=== PATIENT | male | born 1970 | race American Indian/Alaskan Native ===

== ENCOUNTER 2020-04-03 13:45 | Emergency (ER) | payer OTHER ==
--- NOTE | 2020-04-03 14:20 | Event Note ---
ED Screening Note ED Screening Note: right leg swelling and pain a week and a half ago no fall or injury +SOB no CP no numbness or weakness PMHx ashtma, PE 2018 pt is currently on xarelto 20 mg daily, states that he missed 4 days of pills when [facility] was [facility] allergy: PCN, bactrim +smoker pitting edema BLE decreased breath sounds bilaterally This initial assessment/diagnostic orders/clinical plan/treatment(s) is/are subject to change based on patients health status, clinical progression and re- assessment by fellow clinical providers in the ED. Further treatment and workup at subsequent clinical providers discretion. Patient/guardian urged not to elope from the ED as their condition may be serious if not clinically assessed and managed. Initial orders include: labs US CXR EKG
--- NOTE | 2020-04-03 15:23 | Vascular Lab Report ---
DUPLEX DOPPLER LOWER EXTREMITY VEINS, BILATERAL INDICATION / CLINICAL INFORMATION: BLE edema, right greater than left. TECHNIQUE: Duplex doppler imaging was performed through the veins of both lower extremities using venous lui maryjane and other maneuvers. COMPARISON: None available. FINDINGS: RIGHT COMMON FEMORAL VEIN: Negative. RIGHT FEMORAL VEIN: Negative. RIGHT POPLITEAL VEIN: Negative. RIGHT CALF VEINS: Negative. LEFT COMMON FEMORAL VEIN: Negative. LEFT FEMORAL VEIN: Negative. LEFT POPLITEAL VEIN: Negative. LEFT CALF VEINS: Negative. ADDITIONAL FINDINGS: None. IMPRESSION: 1. No sonographic evidence for DVT in either lower extremity. Signer Name: Ambrocio Martinez MD Signed: 04/03/2020 3:18 PM Workstation Name: [id number]
--- NOTE | 2020-04-03 15:23 | XRay Report ---
CHEST 2 VIEWS INDICATION / CLINICAL INFORMATION: SOB. COMPARISON: None available. FINDINGS: SUPPORT DEVICES: None. HEART / MEDIASTINUM: No significant abnormality. LUNGS / PLEURA: No significant pulmonary or pleural abnormality. No pneumothorax. ADDITIONAL FINDINGS: No significant additional findings. IMPRESSION: 1. No acute findings. Signer Name: Ambrocio Martinez MD Signed: 04/03/2020 3:19 PM Workstation Name: [id number]
[2020-04-03 16:29] LABS: Basophils % (Auto) 0.6 % (0.0-1.8); Eosinophils # (Auto) 0.1 K/mm3 (0.0-0.4); Eosinophils % (Auto) 1.8 % (0.0-4.3); Hematocrit 39.4 % (35.5-45.6); Hemoglobin 13.1 gm/dl (11.8-15.2); Lymphocytes % (Auto) 31.1 % (13.4-35.0); Mean Corpuscular HGB Conc 33 % (32-34); Mean Corpuscular Volume 96 fl (84-94); Monocytes # (Auto) 0.8 K/mm3 (0.0-0.8); Monocytes % (Auto) 12.9 % (0.0-7.3); Platelet Count 202 K/mm3 (140-440); Red Blood Count 4.09 M/mm3 (3.65-5.03); Red Cell Distribution Width 13.5 % (13.2-15.2)
[2020-04-03 16:51] LABS: Alanine Aminotransferase 122 units/L (7-56); BUN/Creatinine Ratio 9; Blood Urea Nitrogen 9 mg/dL (9-20); Calcium 8.9 mg/dL (8.4-10.2); Hemolysis Index 21
--- NOTE | 2020-04-03 17:05 | Emergency Department Report ---
HPI - General Chief Complaint: Extremity Injury, Lower Time Seen by Provider: 04/03/20 14:14 - HPI HPI: This is a 49-year-old male who presents to the emergency department from [facility] with complaint of a 2-week history of bilateral leg swelling with right greater than left, as well as some right leg pain. Patient denies any fall, trauma or injury. He has a past medical history of a pulmonary embolism for which she is on Xarelto. However the patient does admit that he missed 4 days of medication when he initially was booked into [facility], about 1 month ago. The patient also denies any other past medical history, but does say that he is on Lasix. Ila garduno also admits that he has been eating a lot of sweets and salty snacks. He denies any fever, chest pain, shortness of breath, numbness or paresthesias. ED Past Medical Hx - Past Medical History Hx Asthma: Yes Additional medical history: BLOOD CLOTS ON LUNGS - Surgical History Past Surgical History?: No - Social History Smoking Status: Current Every Day Smoker ED Review of Systems ROS: Stated complaint: ASTHMA/GERD/PULMONARY EMBOLISM Other details as noted in HPI Comment: All other systems reviewed and negative Constitutional: denies: chills, fever Eyes: denies: eye pain, vision change ENT: denies: ear pain, throat pain Respiratory: denies: cough, shortness of breath Cardiovascular: edema (b/l LE). denies: chest pain Gastrointestinal: denies: abdominal pain, vomiting Genitourinary: denies: dysuria, discharge Musculoskeletal: joint swelling, myalgia. denies: back pain Skin: denies: rash, lesions Neurological: denies: headache, numbness, paresthesias Physical Exam - Physical Exam Vital Signs: Vital Signs 04/03/20 13:57 Temperature 97.9 F Pulse Rate 59 L Respiratory 19 Rate Blood Pressure 118/66 O2 Sat by Pulse 91 Oximetry Physical Exam: GENERAL: The patient is well-developed well-nourished. HENT: Normocephalic. Atraumatic. Patient has moist mucous membranes. EYES: Extraocular motions are intact. NECK: Supple. Trachea is midline. CHEST/LUNGS: Clear to auscultation. There is no respiratory distress noted. HEART/CARDIOVASCULAR: Regular. There is no tachycardia. There is no murmur. ABDOMEN: Abdomen is soft, nontender. Patient has normal bowel sounds. SKIN: Skin is warm and dry. 1-2+ pitting edema to the bilateral lower extremities from the knees distally. No erythema, rash, lesions, drainage, fluctuance. NEURO: The patient is awake, alert, and oriented. The patient is cooperative. The patient has no focal neurologic deficits. Normal speech. MUSCULOSKELETAL: There is mild tenderness to palpation along the right lower extremity.. There is no limitation range of motion. Audible dorsalis pedis pulse bilaterally with pencil Doppler. ED Course Vital Signs 04/03/20 13:57 Temperature 97.9 F Pulse Rate 59 L Respiratory 19 Rate Blood Pressure 118/66 O2 Sat by Pulse 91 Oximetry - Reevaluation(s) Reevaluation #1: 04/03/20 18:24 Lab Results 04/03/20 04/03/20 04/03/20 Range/Units 16:00 16:00 16:00 WBC 6.4 (4.5-11.0) K/mm3 RBC 4.09 (3.65-5.03) M/mm3 Hgb 13.1 (11.8-15.2) gm/dl Hct 39.4 (35.5-45.6) % MCV 96 H (84-94) fl MCH 32 (28-32) pg MCHC 33 (32-34) % RDW 13.5 (13.2-15.2) % Plt Count 202 (140-440) K/mm3 Lymph % (Auto) 31.1 (13.4-35.0) % [place] % (Auto) 12.9 H (0.0-7.3) % Eos % (Auto) 1.8 (0.0-4.3) % Baso % (Auto) 0.6 (0.0-1.8) % Lymph # (Auto) 2.0 (1.2-5.4) K/mm3 [place] # (Auto) 0.8 (0.0-0.8) K/mm3 Eos # (Auto) 0.1 (0.0-0.4) K/mm3 Baso # (Auto) 0.0 (0.0-0.1) K/mm3 Seg Neutrophils % 53.6 (40.0-70.0) % Seg Neutrophils # 3.4 (1.8-7.7) K/mm3 D-Dimer < 135.00 (0-234) ng/mlDDU Sodium 139 (137-145) mmol/L Potassium 4.2 (3.6-5.0) mmol/L Chloride 105.7 (98-107) mmol/L Carbon Dioxide 24 (22-30) mmol/L Anion Gap 14 mmol/L BUN 9 (9-20) mg/dL Creatinine 1.0 (0.8-1.3) mg/dL Estimated GFR > 60 ml/min BUN/Creatinine Ratio 9 % Glucose 97 (75-100) mg/dL Calcium 8.9 (8.4-10.2) mg/dL Total Bilirubin 0.70 (0.1-1.2) mg/dL AST 70 H (5-40) units/L ALT 122 H (7-56) units/L Alkaline Phosphatase 114 (35-129) units/L Troponin T < 0.010 (0.00-0.029) ng/mL NT-Pro-B Natriuret Pep 90.31 (0-450) pg/mL Total Protein 6.9 (6.3-8.2) g/dL Albumin 4.0 (3.9-5) g/dL Albumin/Globulin Ratio 1.4 % ED Medical Decision Making - Lab Data Result diagrams: 04/03/20 16:00 04/03/20 16:00 - Radiology Data Radiology results: report reviewed, image reviewed interpreted by me: Chest x-ray does not show any acute process. There are no pleural effusions, obvious pneumonia and there is no pneumothorax. No significant cardiomegaly. DUPLEX DOPPLER LOWER EXTREMITY VEINS, BILATERAL INDICATION / CLINICAL I NFORMATION: BLE edema, right greater than left. TECHNIQUE: Duplex doppler imaging was performed through the veins of both lower extremities using venous compression and other maneuvers. COMPARISON: None available. FINDINGS: RIGHT COMMON FEMORAL VEIN: Negative. RIGHT FEMORAL VEIN: Negative. RIGHT POPLITEAL VEIN: Negative. RIGHT CALF VEINS: Negative. LEFT COMMON FEMORAL VEIN: Negative. LEFT FEMORAL VEIN: Negative. LEFT POPLITEAL VEIN: Negative. LEFT CALF VEINS: Negative. ADDITIONAL FINDINGS: None. IMPRESSION: 1. No sonographic evidence for DVT in either lower extremity. - Medical Decision Making This patient presents from [facility] with complaint of bilateral lower extremity swelling with right greater than left, as well as some right lower extremity pain, that has been going on for the past 2 weeks. Bilateral venous Doppler ultrasound was negative for any DVT. A chest x-ray was done, as ordered through triage, and did not show any acute process including any pneumonia, pleural effusions or pneumothorax. Patient's labs have been mostly unremarkable including CBC, metabolic panel, D-dimer, proBNP and troponin, other than elevated liver enzymes. As I was going to suggest giving the patient 1 or 2 days worth of Lasix for his lower extremity edema, the patient notifies me that he is already on this medication. There is no DVT, and distal pulses are clear and regular with pencil Doppler. The legs do not have any erythema, rash, fluctuance, warmth. The patient does not appear to have any emergent medical condition. Vital signs are reassuring throughout his ED course. We discussed staying away from alcohol and Tylenol secondary to the elevated liver enzymes. The patient will need to follow-up with gastroenterology outpatient, as well as a primary care physician. He will return to the emergency department with any worsening of his symptoms or with any acute distress. It should be noted that the last set of vitals currently lists the pulse ox as being 7%. This is an obvious error. The nurse is aware and is going to correct it on the chart. Critical Care Time: No Critical care attestation.: If time is entered above; I have spent that time in minutes in the direct care of this critically ill patient, excluding procedure time. ED Disposition Clinical Impression: Bilateral lower extremity edema, Elevated liver enzymes Disposition: DC- TO HOME OR SELFCARE Is pt being admited?: No Condition: Stable Instructions: Edema, Peripheral Edema Additional Instructions: Please follow-up with a primary care physician in the next few days. Take your Lasix as previously prescribed. Try to stay away from foods that are high in salt. Please follow-up with a motor coach chauffeur, once you are able to do so, re garding your elevated liver enzymes. Avoid any alcohol or Tylenol/acetaminophen. Return to the emergency department with any worsening of your symptoms, new or concerning symptoms not addressed during this current emergency department visit, or with any acute distress. Referrals: PCP, Your [Other] - 3-5 Days Help Desk Team Leader, Your [Other] - 3-5 Days Time of Disposition: 17:07
[2020-04-03 17:15] VITALS: BP 144/65
== END 2020-04-03 17:30 | disposition home or self-care (01) ==
LOC: ED 13:45
DX: R60.0 Localized edema (principal); R94.5 Abnormal results of liver function studies; J45.909 Unspecified asthma, uncomplicated; F17.200 Nicotine dependence, unspecified, uncomplicated; Z88.0 Allergy status to penicillin; Z88.6 Allergy status to analgesic agent; Z88.2 Allergy status to sulfonamides
CPT/HCPCS: 36415; 71046; 80053; 83880; 84484; 85025; 85379; 93005; 93970